=== PATIENT | male | born 1950 ===

== ENCOUNTER 2021-10-02 14:43 | Emergency (ER) ==
[2021-10-02 16:09] LABS: #Basophils 0.1 thou/uL (0.0-0.2); #Eosinphils 0.1 thou/uL (0.0-0.7); #Monocytes 0.8 thou/uL (0.11-0.59); #Neutrophils 13.1 thou/uL (1.40-6.50); %Basophils 0.4 % (0.0-1.0); %Eosinophils 0.4 % (0.0-10.0); %Lymphocytes 12.6 % (21.0-51.0); %Monocytes 4.9 % (0.0-10.0); %Neutrophils 81.7 % (42.0-75.0); Hemoglobin 11.7 g/dL (14.0-18.0); Platelet Count 390 thou/uL (130-400); RBC Distribution Width 14.9 % (11.5-14.5); Red Blood Cell (RBC) Count 3.65 mill/uL (4.70-6.10)
[2021-10-02 16:30] LABS: ALT (SGPT) 14 U/L (8-55); AST (SGOT) 19 U/L (5-34); Albumin 3.3 g/dL (3.4-4.8); Alkaline Phosphatase 111 U/L (40-110); Anion Gap 15 mmol/L (10-20); BUN (Urea Nitrogen) 10 mg/dL (8.4-25.7); Bilirubin, Total 0.3 mg/dL (0.2-1.2); CK (CPK) 25 U/L (30-200); Calc. Creatinine Clearance 0 mL/min (70-130); Calcium 8.7 mg/dL (7.8-10.44); Carbon Dioxide 27 mmol/L (23-31); Chloride 95 mmol/L (98-107); Globulin 3.4 g/dL (2.4-3.5); Glucose 86 mg/dL (83-110); Magnesium 1.7 mg/dL (1.6-2.6); Potassium 4.3 mmol/L (3.5-5.1); Protein, Total 6.7 g/dL (5.8-8.1); Sodium 133 mmol/L (136-145)
[2021-10-02 19:00] LABS: Bilirubin Negative (Negative); Blood, Urine Negative (Negative); Clarity Clear (Clear); Glucose, Urine (Dipstick) Normal (Negative); Ketone, Urine Negative (Negative); Leukocyte Negative Leu/uL (Negative); Nitrite Negative (Negative); Protein, Urine (Dipstick) Negative (Neg-Trace); Specific Gravity, Urine 1.013 (1.002-1.036); Urobilinogen Normal mg/dL (Less than 2)
== END 2021-10-02 20:02 | disposition home or self-care (01) ==
LOC: ERS 14:43
DX: I95.9 Hypotension, unspecified (principal); E78.5 Hyperlipidemia, unspecified; C85.91 Non-Hodgkin lymphoma, unspecified, lymph nodes of head, face, and neck; Z51.11 Encounter for antineoplastic chemotherapy
CPT/HCPCS: 71045; 80053; 81003; 82550; 83605; 83735; 84443; 84484; 85025; 93005; 96360